=== PATIENT | female | born 1965 | race Caucasian/White ===

== ENCOUNTER → 2023-11-01 08:34 | Outpatient (REF) | payer OTHER, SELFPAY | LOC: WDC 08:34 | PROVIDERS: ATTENDING PHYSICIAN Nurse Practitioner | DX: Z12.31 Encounter for screening mammogram for malignant neoplasm of breast (principal) | CPT/HCPCS: 77063; 77067 ==

== ENCOUNTER → 2024-03-27 07:14 | Outpatient (REF) | payer OTHER, SELFPAY | LOC: RCS 07:14 | PROVIDERS: ATTENDING PHYSICIAN Nurse Practitioner | DX: R06.02 Shortness of breath (principal); R94.31 Abnormal electrocardiogram [ECG] [EKG] | CPT/HCPCS: 93306 ==

== ENCOUNTER 2024-05-17 10:33 | Emergency (ER) | payer OTHER, SELFPAY ==
--- NOTE | 2024-05-17 10:56 | ED.GENMED ---
ED Provider Triage
-
Patient seen by provider in Triage?: Seen in Triage
Attestation: A medical screening examination has been initiated by a qualified medical provider. Based on the assessment performed at this time, it has been determined that an emergent medical condition may exist and the patient has been informed
that further medical evaluation and possible additional diagnostic testing may be needed.
HPI: Left lower quadrant pain x 2 days. Has a history of diverticulitis. 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 Patient states pain is currently tolerable. There are no
other symptoms. Denies any fevers. Labs and CT ordered. Patient otherwise remains well-appearing.
GENERAL: Alert , in no apparent distress
EYE: No visual abnormalities.
NECK: Trachea midline
ENT: No visible abnormalities.
LUNGS: No acute respiratory distress
NEUROLOGICAL: Alert and oriented
SKIN: Skin intact. No visible changes.
MUSCULOSKELETAL: Moving extremities normally
PSYCH: Normal and appropriate interaction.
This is a medical evaluation conducted in person to initiate diagnostic evaluation and provide initial therapeutics. Please see further documentation by the treating clinician.
History of Present Illness
General
Chief Complaint: Abdominal Pain
Source: patient
Time Seen by Provider: 05/17/24 11:04
History of Present Illness
History of Present Illness:
59-year-old female presenting to the ER for evaluation of left lower quadrant pain that began on similar to previous episodes of diverticulitis. Patient describes the pain to be similar to previous episodes describing it to be a dull
aching sensation, nonradiating and constant. Patient contacted her GI physician and spoke to the on-call provider who states due to the recurring nature of the diverticulitis would recommend patient come to the ER for CT scan and further
evaluation. Patient denies any fevers, chills, rigors, nausea or vomiting, urinary symptoms or bowel changes. She did not take anything for pain prior to arrival and does not want anything while here. No other concerns at this time
Past History
Past History
ED Past Medical History: Cancer and Other (Diverticulitis)
ED Past Surgical History: Gynecological and Tonsilectomy
Social History
Tobacco: Non-smoker
Alcohol: None
Drug: None
Personal:
Living: with family
Review of Systems
Review of Systems
All Other Systems: ROS reviewed and negative except as documented in HPI and ROS
Phy Exam
Physical Exam
Physical Exam:
GENERAL: Alert , in no apparent distress
EYE: clear conjunctiva b/l
HEAD: NCAT
ENT: o/p clr, mmm.
ABDOMEN: Soft, mild tenderness within the left lower quadrant, no r/g, no cvat
NEUROLOGICAL: Alert and oriented
SKIN: Warm and dry, skin intact.
MUSCULOSKELETAL: No edema, well perfused.
PSYCH: Normal and appropriate interaction.
Scores
Heart Failure Risk
Heart Failure Risk Score: Not Applicable
Heart Score for Chest Pain Patients
STEMI patient?: Not applicable
Withdrawal Assessment of Alcohol
Withdrawal Assessment Completed?: Not applicable
Course
Orders/Labs/Results
Orders:
Orders
05/17/24 10:59
CT Abd/pelvis W Iv Cont Urgent
Comment:
Reason For Exam: LLQ pain, hx diverticulitis
05/17/24 11:04
Complete Blood Count/With Diff Urgent
Comprehensive Metabolic Panel Urgent
Lipase Urgent
Abnormal Lab Results
05/17/24
11:04
WBC 13.1 H 10^3/uL
(4.8-10.8)
Absolute Neuts (auto) 9.7 H 10^3/uL
(1.4-6.5)
Absolute Monos (auto) 0.8 H 10^3/uL
(0.1-0.6)
Lymphocytes % 17.4 L %
(20.5-51.1)
Glucose 109 H mg/dl
(70-99)
05/17/24 11:04
05/17/24 11:04
Vital Signs
Initial and Last Documented VS:
Initial Vital Signs
Temp Pulse Resp BP Pulse Ox
98.2 F 84 16 169/88 94
05/17/24 10:57 05/17/24 10:57 05/17/24 10:57 05/17/24 10:57 05/17/24 10:57
Last Documented Vital Signs
Temp Pulse Resp BP Pulse Ox
98.2 F 66 18 127/66 100
05/17/24 10:57 05/17/24 13:25 05/17/24 13:25 05/17/24 13:25 05/17/24 13:25
MDM/Problems Addressed
Differential Diagnosis Includes:
Diverticulitis, ulcerative colitis, Crohn's, renal/ureteral colic, UTI, pyelonephritis
MDM/Problems Addressed:
59-year-old female presenting to the ER for evaluation of left lower quadrant abdominal pain similar to previous episodes of diverticulitis. She was sent to the ER for CT scan by GI provider. Patient is in no acute distress and hemodynamically
stable. Labs and CT ordered. Disposition pending.
Chronic conditions affecting care: Other (Previous diverticulitis)
Acute Exacerbation and/or Progression of Chronic Illness: Other (Diverticulitis)
*Radiology
Radiology exam reviewed: radiology read reviewed
*Pulse Oximetry
Patient hypoxic: no
*Critical Care Note
Total Time (30-74mins, 75-104mins- exclusive of procedures): Not Applicable
Patient Management
Escalation/DeEscalation of care consider admission/obs:
Patient CT scan shows uncomplicated sigmoid diverticulitis. She does have a mild leukocytosis however her pain is controlled and she is afebrile. Patient would like to be discharged home. Prescription for Augmentin sent to pharmacy. Advise close
follow-up with primary care provider and GI team. Aware of return precautions
ED Attending Note
-
Portions of this chart may have been created with voice recognition software.� Occasional wrong word or��sound alike� substitutions may have occurred due to the inherent limitations of voice recognition software.
Discharge Plan
Departure
Patient Disposition: Home (Routine Discharge)
Date of Disposition: 05/17/24
Time of Disposition: 13:05
Patient with high blood pressure during this ER visit?: No
Discharge Problem:
Diverticulitis
Instructions: Diverticulitis (DC)
Prescriptions:
New
amoxicillin-pot clavulanate 875-125 mg tablet
1 tab PO BID 10 Days Qty: 20 0RF
Referrals:
Melissa Mayer CRNP [Family Provider] -
Interventions
Interventions:
*Risk Screen - Suicide Last Done: 05/17/24 10:57
*Neglect/Abuse Screening Last Done: 05/17/24 10:57
*Nursing Disposition Last Done: 05/17/24 13:58
QQ-Odoopf-Kilugeyijo Assessment Last Done: 05/17/24 12:36
Discharge Date and Time
Discharge Date/Time: 05/17/24 13:15
Print Language: KOSOVAN
[2024-05-17 10:57] VITALS: BP 169/88
[2024-05-17 11:19] LABS: % Basophils 0.6 % (0-2); % Eosinophils 1.8 % (0-6); % Immature Granulocytes 0.3 % (0-0.5); % Lymphocytes 17.4 % (20.5-51.1); % Monocytes 6.3 % (1.7-9.3); % Neutrophils 73.6 % (42.2-75.2); Absolute Basophils 0.1 10^3/uL (0-0.2); Absolute Eosinophils 0.2 10^3/uL (0-0.7); Absolute Lymphocytes 2.3 10^3/uL (1.2-3.4); Absolute Monocytes 0.8 10^3/uL (0.1-0.6); Absolute Neutrophils 9.7 10^3/uL (1.4-6.5); Hematocrit 42.8 % (37.0-47.0); Hemoglobin 14.5 g/dL (12.0-16.0); Mean Corp Hgb Conc. 33.9 g/dL (33.0-37.0); Mean Corpuscular Hgb 29.2 pg (27.0-31.0); Mean Corpuscular Volume 86.3 fL (81.0-99.0); Mean Platelet Volume 8.5 fL (7.4-10.4); Nucleated Red Blood Cells % 0 %; Platelet Count 365 10^3/uL (130-400); Red Blood Cell Count 4.96 10^6/uL (4.20-5.40); Red Cell Dist. Width 12.8 % (11.5-14.5); White Blood Cell Count 13.1 10^3/uL (4.8-10.8)
[2024-05-17 11:28] LABS: ALT (SGPT) 32 U/L (0-35); AST (SGOT) 30 U/L (14-36); Albumin 4.4 g/dl (3.5-5.0); Alkaline Phosphatase 88 U/L (38-126); Blood Urea Nitrogen 14 mg/dl (7-17); Calcium 9.3 mg/dl (8.4-10.2); Carbon Dioxide 23 mmol/L (22-30); Chloride 103 mmol/L (98-107); Glucose 109 mg/dl (70-99); Lipase 99 U/L (23-300); Potassium 4.6 mmol/L (3.5-5.1); Sodium 137 mmol/L (135-145); Total Bilirubin 0.8 mg/dl (0.2-1.3); eGFR > 60.00
[2024-05-17 13:25] VITALS: BP 127/66
== END 2024-05-17 13:15 | disposition home or self-care (01) ==
LOC: EMR 10:33
PROVIDERS: Physician Assistant Medical; EMERGENCY PHYSICIAN Emergency Medicine; FAMILY PHYSICIAN Nurse Practitioner
DX: K57.32 Diverticulitis of large intestine without perforation or abscess without bleeding (principal); Z85.9 Personal history of malignant neoplasm, unspecified; Z91.048 Other nonmedicinal substance allergy status
CPT/HCPCS: 99284; 74177; 80053; 83690; 85025; Q9967

== ENCOUNTER → 2024-07-04 11:10 | Outpatient (REF) | payer OTHER, SELFPAY | LOC: DHSLP 11:10 | PROVIDERS: ATTENDING PHYSICIAN Internal Medicine | DX: G47.33 Obstructive sleep apnea (adult) (pediatric) (principal) | CPT/HCPCS: 95800 ==

== ENCOUNTER → 2024-11-05 07:25 | Outpatient (REF) | payer OTHER, SELFPAY | LOC: WDC 07:25 | PROVIDERS: ATTENDING PHYSICIAN Nurse Practitioner | DX: Z12.31 Encounter for screening mammogram for malignant neoplasm of breast (principal) | CPT/HCPCS: 77063; 77067 ==

== ENCOUNTER → 2024-11-18 10:37 | Outpatient (REF) | payer OTHER, SELFPAY | LOC: WDC 10:37 | PROVIDERS: ATTENDING PHYSICIAN Nurse Practitioner | DX: R92.8 Other abnormal and inconclusive findings on diagnostic imaging of breast (principal) | CPT/HCPCS: 76642 ==

== ENCOUNTER → 2024-11-25 07:49 | Outpatient (REF) | payer OTHER, SELFPAY ==
--- NOTE | 2024-11-25 14:25 | OID.BR.INTR ---
[facility] Breast Navigator - Initial
- -
Date of Contact: 11/25/24
Met with patient. Patient given written information on navigator service available at [facility]. Will follow up as needed per protocol.
== END ==
LOC: WDC 07:49
PROVIDERS: ATTENDING PHYSICIAN Nurse Practitioner
DX: N63.20 Unspecified lump in the left breast, unspecified quadrant (principal)
CPT/HCPCS: 19083; 88305; A4648

== ENCOUNTER 2024-12-04 06:12 | Day surgery (SDC) | payer OTHER, SELFPAY | END 2024-12-04 09:52 | disposition home or self-care (01) | LOC: GI 06:12 | PROVIDERS: ATTENDING PHYSICIAN Internal Medicine Gastroenterology | DX: Z12.11 Encounter for screening for malignant neoplasm of colon (principal); K64.8 Other hemorrhoids; K57.30 Diverticulosis of large intestine without perforation or abscess without bleeding; D12.2 Benign neoplasm of ascending colon; D12.5 Benign neoplasm of sigmoid colon; K63.5 Polyp of colon; Z86.0100 Personal history of colon polyps, unspecified | CPT/HCPCS: 45385; 45380; 88305 ==